=== PATIENT | male | born 1965 | race Caucasian/White ===

== ENCOUNTER 2017-09-11 13:04 | Day surgery (SDC) | payer OTHER ==
[2017-09-11] MEDS ORDERED: MIDAZOLAM 1 MG/ML 2 ML INJ ×2 (15:07)
[2017-09-11] MEDS ORDERED: FENTAnyl 50 MCG/ML VIAL (15:07)
== END 2017-09-11 16:54 | disposition home or self-care (01) ==
LOC: GIL 13:04
DX: Z12.11 Encounter for screening for malignant neoplasm of colon (principal); D12.5 Benign neoplasm of sigmoid colon; D12.3 Benign neoplasm of transverse colon; E11.9 Type 2 diabetes mellitus without complications; I10 Essential (primary) hypertension; E78.5 Hyperlipidemia, unspecified
CPT/HCPCS: 45380; 88305